=== PATIENT | male | born 1980 | race Caucasian/White ===

== ENCOUNTER 2016-12-31 08:53 | Emergency (ER) | payer BC ==
[2016-12-31] MEDS ORDERED: RX INFO: IV CONTRAST WAS GIVEN 1 EACH MISC MISCELLANE PRN (11:27)
[2016-12-31] MEDS ORDERED: ACETAMINOPHEN IV (For NPO) 1,000 MG in SALINE 100 100ML.BAG IVPB STA (11:27)
--- NOTE | 2016-12-31 11:35 | ED ---
General Adult HPI <Abebe Bose - Last Filed: 12/31/16 17:13> - General Source: patient, RN notes reviewed Mode of arrival: ambulatory Limitations: no limitations <Vipul Duke - Last Filed: 12/31/16 17:47> - General Chief complaint: ENT Stated complaint: throat pain Time Seen by Provider: 12/31/16 11:04 - History of Present Illness Initial comments: Patient is a 36-year-old male who presents emergency room today with chief complaint of a sore throat 5 days. Patient does admit to go to [employer] was started on antibiotics of Augmentin. He states he was told he had an ear infection. He states he was negative strep. Patient does admit that he has had increased pain symptoms over the last few days. States been using antibiotic with no relief. States [facility] advised him come here to the emergency room. Patient states been using Motrin for the pain but is having increased pain to the right side of the neck and feels swollen. States more difficulty swallowing but is able to swallow liquids. Patient denies any recent shortness of breath, chest pain, back pain, abdominal pain, nausea or vomiting, numbness or tingling, dysuria or hematuria, constipation or diarrhea, headaches or visual changes, or any other complaints. (Vipul Duke) - Related Data Home Medications Medication Instructions Recorded Confirmed Ibuprofen [Motrin] 800 mg PO Q8H PRN 12/31/16 12/31/16 Multivitamins, Thera [Multivitamin 1 tab PO HS 12/31/16 12/31/16 (formulary)] Allergies Allergy/AdvReac Type Severity Reaction Status Date / Time No Known Allergies Allergy Verified 12/31/16 12:18 Review of Systems ROS Other: All systems not noted in ROS Statement are negative. <Abebe Bose - Last Filed: 12/31/16 17:13> ROS Other: All systems not noted in ROS Statement are negative. <Vipul Duke - Last Filed: 12/31/16 17:47> ROS Statement: Those systems with pertinent positive or pertinent negative responses have been documented in the HPI. Past Medical History Past Medical History: No Reported History History of Any Multi-Drug Resistant Organisms: None Reported Past Surgical History: No Surgical Hx Reported Past Psychological History: No Psychological Hx Reported Smoking Status: Never smoker Past Alcohol Use History: Occasional Past Drug Use History: None Reported <Vipul Duke - Last Filed: 12/31/16 17:47> General Exam <Abebe Bose - Last Filed: 12/31/16 17:13> Limitations: no limitations <Vipul Duke - Last Filed: 12/31/16 17:47> - General Exam Comments Initial Comments: General: The patient is awake and alert, in no distress, and does not appear acutely ill. Eye: Pupils are equal, round and reactive to light, extra-ocular movements are intact. No nystagmus. There is normal conjunctiva bilaterally. No signs of icterus. Ears, nose, mouth and throat: There are moist mucous membranes and no oral lesions. Neck: The neck is supple, there is no tenderness or JVD. Cardiovascular: There is a regular rate and rhythm. No murmur, rub or gallop is appreciated. Respiratory: Lungs are clear to auscultation, respirations are non-labored, breath sounds are equal. No wheezes, stridor, rales, or rhonchi. Gastrointestinal: Soft, non-distended, non-tender abdomen without masses or organomegaly noted. There is no rebound or guarding present. No CVA tenderness. Bowel sounds are unremarkable. Musculoskeletal: Normal ROM, no tenderness. Strength 5/5. Sensation intact. Pulses equal bilaterally 2+. Neurological: A&O x 3. CN II-XII intact, There are no obvious motor or sensory deficits. Coordination appears grossly intact. Speech is normal. Skin: Skin is warm and dry and no rashes or lesions are noted. Psychiatric: Cooperative, appropriate mood & affect, normal judgment. (Vipul Duke) Course <Abebe Bose - Last Filed: 12/31/16 17:13> <Vipul Duke - Last Filed: 12/31/16 17:47> Vital Signs 12/31/16 12/31/16 12/31/16 10:34 13:29 17:03 Temperature 99.9 F H 99 F 98.8 F Pulse Rate 85 70 87 Respiratory 18 18 20 Rate Blood Pressure 131/76 121/75 115/57 O2 Sat by Pulse 99 97 97 Oximetry - Reevaluation(s) Reevaluation #1: 12/31/16 17:13 I did personally evaluate the patient and did discuss findings with him and his . Patient has had her file positive clinically he is does demonstrate evidence of a peritonsillar abscess this is confirmed by CAT scan. We did discuss the need for incision and drainage. The patient was prepped using Hurricaine spray was hydrated I did make 4 attempts with an 18-gauge needle to enter the pus pocket that. All 4 episodes were unsuccessful. The patient did move on two view 10 mL or a nervous. My attempt reported. (Abebe Bose) Reevaluation #2: 12/31/16 17:14 I did discuss the case with Dr. Gant who did agree to come in to see the patient. Evaluation is currently underway. (Abebe Bose) Medical Decision Making - Lab Data Result diagrams: 12/31/16 11:40 12/31/16 11:40 <Abebe Bose - Last Filed: 12/31/16 17:13> - Lab Data Result diagrams: 12/31/16 11:40 12/31/16 11:40 <Vipul Duke - Last Filed: 12/31/16 17:47> - Medical Decision Making Patient's CT does show tonsillar abscess on the right measuring approximately 2 cm. Patient is profile positive. Attempt was made by ER physician Dr. Bose to drain abscess. Small amount of drainage was obtained however, did call ENT for further evaluation. Patient was seen in the emergency room by ENT specialist Dr. Gant who did drain abscess. Culture is pending. Patient was given prescription by Dr. Gant for [place], prednisone, clindamycin to continue at home. Will be discharged at this time advised follow-up with ENT. ( Vipul Duke) - Lab Data Lab Results 12/31/16 12/31/16 12/31/16 Range/Units 11:40 11:40 11:40 WBC 7.9 (3.8-10.6) k/uL RBC 5.42 (4.30-5.90) m/uL Hgb 16.4 (13.0-17.5) gm/dL Hct 47.8 (39.0-53.0) % MCV 88.3 (80.0-100.0) fL MCH 30.2 (25.0-35.0) pg MCHC 34.2 (31.0-37.0) g/dL RDW 13.3 (11.5-15.5) % Plt Count 215 (150-450) k/uL Neutrophils % 74 % Lymphocytes % 15 % Monocytes % 6 % Eosinophils % 2 % Basophils % 0 % Neutrophils # 5.9 (1.3-7.7) k/uL Lymphocytes # 1.2 (1.0-4.8) k/uL Monocytes # 0.5 (0-1.0) k/uL Eosinophils # 0.1 (0-0.7) k/uL Basophils # 0.0 (0-0.2) k/uL Sodium 144 (137-145) mmol/L Potassium 4.4 (3.5-5.1) mmol/L Chloride 104 (98-107) mmol/L Carbon Dioxide 27 (22-30) mmol/L Anion Gap 13 mmol/L BUN 11 (9-20) mg/dL Creatinine 0.93 (0.66-1.25) mg/dL Est GFR (MDRD) Af Amer >60 (>60 ml/min/1.73 sqM) Est GFR (MDRD) Non-Af >60 (>60 ml/min/1.73 sqM) Glucose 89 (74-99) mg/dL Calcium 10.0 (8.4-10.2) mg/dL Total Bilirubin 1.2 (0.2-1.3) mg/dL AST 56 (17-59) U/L ALT 99 H (21-72) U/L Alkaline Phosphatase 130 H (38-126) U/L Total Protein 8.0 (6.3-8.2) g/dL Albumin 4.4 (3.5-5.0) g/dL Heterophile Antibody Positive (Negative) Group A Strep Rapid (Negative) 12/31/16 Range/Units 11:40 WBC (3.8-10.6) k/uL RBC (4.30-5.90) m/uL Hgb (13.0-17.5) gm/dL Hct (39.0-53.0) % MCV (80.0-100.0) fL MCH (25.0-35.0) pg MCHC (31.0-37.0) g/dL RDW (11.5-15.5) % Plt Count (150-450) k/uL Neutrophils % % Lymphocytes % % Monocytes % % Eosinophils % % Basophils % % Neutrophils # (1.3-7.7) k/uL Lymphocytes # (1.0-4.8) k/uL Monocytes # (0-1.0) k/uL Eosinophils # (0-0.7) k/uL Basophils # (0-0.2) k/uL Sodium (137-145) mmol/L Potassium (3.5-5.1) mmol/L Chloride (98-107) mmol/L Carbon Dioxide (22-30) mmol/L Anion Gap mmol/L BUN (9-20) mg/dL Creatinine (0.66-1.25) mg/dL Est GFR (MDRD) Af Amer (>60 ml/min/1.73 sqM) Est GFR (MDRD) Non-Af (>60 ml/min/1.73 sqM) Glucose (74-99) mg/dL Calcium (8.4-10.2) mg/dL Total Bilirubin (0.2-1.3) mg/dL AST (17-59) U/L ALT (21-72) U/L Alkaline Phosphatase (38-126) U/L Total Protein (6.3-8.2) g/dL Albumin (3.5-5.0) g/dL Heterophile Antibody (Negative) Group A Strep Rapid Negative (Negative) Disposition <Abebe Bose - Last Filed: 12/31/16 17:13> Time of Disposition: 17:47 <Vipul Duke - Last Filed: 12/31/16 17:47> Clinical Impression: Tonsillar abscess Disposition: HOME SELF-CARE Condition: Good Instructions: Peritonsillar Abscess (ED) Additional Instructions: Please use medications as prescribed and follow-up with ENT as discussed here in emergency room. Please return to emergency room if any symptoms increase or worsen or for any other concerns. Referrals: Rajinder Dee III, MD [Primary Care Provider] - 1-2 days Filemon Garza DO [Doctor of Osteopathic Medicine] - 1-2 days
[2016-12-31 11:54] LABS: Basophils % (A) 0 %; CHCM 34.2; Eosinophils # (A) 0.1 k/uL (0-0.7); Eosinophils % (A) 2 %; HCT 47.8 % (39.0-53.0); HDW 2.69; HGB 16.4 gm/dL (13.0-17.5); Luc # (Auto) 0.18; Luc % (Auto) 2; Lymphocytes # (A) 1.2 k/uL (1.0-4.8); Lymphocytes % (A) 15 %; MCH 30.2 pg (25.0-35.0); MCHC 34.2 g/dL (31.0-37.0); MCV 88.3 fL (80.0-100.0); Mean Platelet Volume 6.5; Monocytes # (A) 0.5 k/uL (0-1.0); Monocytes % (A) 6 %; Neutrophils # (A) 5.9 k/uL (1.3-7.7); Neutrophils % (A) 74 %; RBC 5.42 m/uL (4.30-5.90); RDW 13.3 % (11.5-15.5); WBC 7.9 k/uL (3.8-10.6); WBC (Perox) 7.64
[2016-12-31 12:21] LABS: ALT 99 U/L (21-72); AST 56 U/L (17-59); Alkaline Phosphatase 130 U/L (38-126); Anion Gap 13 mmol/L; Blood Urea Nitrogen 11 mg/dL (9-20); Carbon Dioxide 27 mmol/L (22-30); Chloride 104 mmol/L (98-107); Glucose 89 mg/dL (74-99); Non-African American GFR(MDRD) >60 (>60 ml/min/1.73 sqM); Potassium 4.4 mmol/L (3.5-5.1); Sodium 144 mmol/L (137-145); Total Bilirubin 1.2 mg/dL (0.2-1.3)
--- NOTE | 2016-12-31 13:19 | CT ---
EXAMINATION TYPE: CT soft tissue neck w con DATE OF EXAM: 12/31/2016 1:01 PM COMPARISON: NONE HISTORY: Sore throat and swollen gland CT DLP: 505.10 mGycm CONTRAST: Patient injected with 100 ml mL of Omnipaque 300. TECHNIQUE: Axial images at 3 mm thick sections. Reconstructed images in the coronal plane and sagitt al plane are reviewed. FINDINGS: Limited CT sections are obtained the lung apices. The lung apices appear clear. CT neck: The right fossa of Rosenmuller is effaced. Torus tubarius has some swelling on the right. Le ft torus tubarius and fossa of Rosenmuller are normal. Retail Selling Floor Leader spaces are normal. There is a rete ntion cyst within the left maxillary sinus. Left septal deviation is present. Mastoid air cells and r emaining paranasal sinuses are clear. There is a low-density area within the right tonsillar pillar with some mild peripheral enhancement. This measures approximately 2.2 cm transverse by 2.1 cm AP compatible with a tonsillar abscess. Parotid glands appear normal and symmetrical. Submandibular glands, are normal. Parapharyngeal spac es are normal. No suspicious adenopathy is evident. At the level at the right neck marked by the BB no suspicious underlying mass is evident. No suspicio us adenopathy is evident. There is a tiny substernal cleidomastoid muscle lymph node present imaging 0.6 cm. The hypopharynx appears within normal limits. Vocal cord level appear symmetrical. Thyroid as visualized is normal. Osseous structures are normal. IMPRESSIONS: 1. Right tonsillar abscess. Report was called to the emergency room by Dr. Ng by telephone at th e time of interpretation. 2. No abnormal mass at the level marked by the BB in the right neck.
[2016-12-31] MEDS ORDERED: HYDROmorphone 1 MG/ML 1 ML SYRINGE IVP STA ×2 (13:28→16:56)
[2016-12-31] MEDS ORDERED: ONDANSETRON 4 MG/2 ML VIAL IVP STA (13:28)
[2016-12-31] MEDS ORDERED: SODIUM CHLORIDE 0.9% 1,000 ML IV STA ×2 (13:33→16:37)
[2016-12-31] MEDS ORDERED: BENZOCAINE SPRAY 100 APPLIC/CAN ONE (13:41)
[2016-12-31] MEDS ORDERED: BENZOCAINE SPRAY 100 APPLIC/CAN MUCOUS MEM STA (15:11)
[2016-12-31] MEDS ORDERED: LORazepam 2 MG/ML SYRINGE IV STA (16:07)
[2016-12-31] MEDS ORDERED: methylPREDNISolone SOD SUCCI 125 MG/2 ML VIAL IV STA (16:37)
[2016-12-31] MEDS ORDERED: CLINDAMYCIN 600 MG in DEXTROSE 5% IN WATER 50 ML IVPB STA ×2 (16:40)
[2016-12-31 17:07] VITALS: RESP 20
--- NOTE | 2016-12-31 17:45 | P.GSCN ---
History of Present Illness Consult date: 12/31/16 Reason for Consult: Throat pain for 4-5 days Requesting physician: Abebe Bose History of present illness: This is a 36-year-old white male who started having a sore throat about 4-5 days ago. He developed trismus about 3 days ago. He was seen in the urgent care was given amoxicillin but if problems persisted and was sent here to the emergency room for evaluation and treatment. He complains of severe right- sided throat pain and trismus. He was monitored positive and he is being worked up for mononucleosis. This patient is in severe pain and describes it as a pressure and all pain extending to the right ear. He has a hard time opening his mouth. He describes this as severe. CAT scan evaluation previously done shows a right peritonsillar abscess. Measures over 2 cm. I discussed this with the patient and he was in agreement that this needs to be drained. Review of Systems - Constitutional Reports lethargy, Reports malaise - EENT Eyes: denies as per HPI Ears, nose, mouth and throat: Reports ant. neck pain, Reports odynophagia, Reports swelling in mouth, Reports swelling in throat, Reports sore throat - Cardiovascular Denies chest pain, Denies irregular heart beat - Respiratory Reports congestion, Denies hemoptysis - Gastrointestinal Denies abdominal pain, Denies change in bowel habits - Genitourinary Denies discharge - Musculoskeletal Denies atrophy ( ) - Integumentary Denies brittle nails - Neurological Denies balance difficulties, Denies change in speech, Denies hearing difficulties - Psychiatric Reports anxiety, Denies depression - Endocrine Denies deepening of the voice, Denies excessive sweating - Hematologic/Lymphatic Reports lymphadenopathy, Denies easy bleeding - Allergic/Immunologic Denies allergic rhinitis, Denies anaphylaxis Past Medical History Past Medical History: No Reported History History of Any Multi-Drug Resistant Organisms: None Reported Past Surgical History: No Surgical Hx Reported Past Psychological History: No Psychological Hx Reported Smoking Status: Never smoker Past Alcohol Use History: Occasional Past Drug Use History: None Reported Medications and Allergies Home Medications Medication Instructions Recorded Confirmed Type Ibuprofen [Motrin] 800 mg PO Q8H PRN 12/31/16 12/31/16 History Multivitamins, Thera [Multivitamin 1 tab PO HS 12/31/16 12/31/16 History (formulary)] Allergies Allergy/AdvReac Type Severity Reaction Status Date / Time No Known Allergies Allergy Verified 12/31/16 12:18 Surgical - Exam Osteopathic Statement: *. No significant issues noted on an osteopathic structural exam other than those noted in the History and Physical/Consult. Vital Signs Temp Pulse Resp BP Pulse Ox 99.9 F H 85 18 131/76 99 12/31/16 10:34 12/31/16 10:34 12/31/16 10:34 12/31/16 10:34 12/31/16 10:34 - General well developed, well nourished, moderate distress - Eyes PERRL, normal ocular movement - ENT Head is normocephalic, the face is symmetric. There is no abnormal movements. There is no tenderness to the sinuses are mastoids. There is no nodules or eruptions parasites on scalp. Nose is patent without polyps or masses. Ears auricles are well-formed canals are clear the tympanic members are without bulging or retraction. Mouth and throat patient has a very large amount of swelling of the right tonsil with what appears to be a peritonsillar abscess on the right this will be drained. There is uvular deviation to the left. Neck shows cervical lymphadenopathy on the right side quite tender. Patient's very anxious. normal pinna, normal nares, no decreased hearing, no deviated nasal septum, no poor prison - Respiratory normal expansion - Cardiovascular Rhythm: regular - Abdomen Abdomen: non tender - Musculoskeletal normal gait, normal posture - Psychiatric oriented to time, oriented to person, oriented to place, speech is normal Results - Labs 12/31/16 11:40 12/31/16 11:40 Abnormal Lab Results - Last 24 Hours (Table) 12/31/16 Range/Units 11:40 ALT 99 H (21-72) U/L Alkaline Phosphatase 130 H (38-126) U/L Microbiology - Last 24 Hours (Table) 12/31/16 11:40 Group A Strep Throat Culture - Preliminary Throat Diabetes panel 12/31/16 Range/Units 11:40 Sodium 144 (137-145) mmol/L Potassium 4.4 (3.5-5.1) mmol/L Chloride 104 (98-107) mmol/L Carbon Dioxide 27 (22-30) mmol/L BUN 11 (9-20) mg/dL Creatinine 0.93 (0.66-1.25) mg/dL Glucose 89 (74-99) mg/dL Calcium 10.0 (8.4-10.2) mg/dL AST 56 (17-59) U/L ALT 99 H (21-72) U/L Alkaline Phosphatase 130 H (38-126) U/L Total Protein 8.0 (6.3-8.2) g/dL Albumin 4.4 (3.5-5.0) g/dL Calcium panel 12/31/16 Range/Units 11:40 Calcium 10.0 (8.4-10.2) mg/dL Albumin 4.4 (3.5-5.0) g/dL Pituitary panel 12/31/16 Range/Units 11:40 Sodium 144 (137-145) mmol/L Potassium 4.4 (3.5-5.1) mmol/L Chloride 104 (98-107) mmol/L Carbon Dioxide 27 (22-30) mmol/L BUN 11 (9-20) mg/dL Creatinine 0.93 (0.66-1.25) mg/dL Glucose 89 (74-99) mg/dL Calcium 10.0 (8.4-10.2) mg/dL Adrenal panel 12/31/16 Range/Units 11:40 Sodium 144 (137-145) mmol/L Potassium 4.4 (3.5-5.1) mmol/L Chloride 104 (98-107) mmol/L Carbon Dioxide 27 (22-30) mmol/L BUN 11 (9-20) mg/dL Creatinine 0.93 (0.66-1.25) mg/dL Glucose 89 (74-99) mg/dL Calcium 10.0 (8.4-10.2) mg/dL Total Bilirubin 1.2 (0.2-1.3) mg/dL AST 56 (17-59) U/L ALT 99 H (21-72) U/L Alkaline Phosphatase 130 H (38-126) U/L Total Protein 8.0 (6.3-8.2) g/dL Albumin 4.4 (3.5-5.0) g/dL Assessment and Plan (1) Peritonsillar abscess Status: Acute (2) Peritonsillar cellulitis Status: Acute (3) Cervical lymphadenopathy Status: Acute (4) Trismus Status: Acute (5) Mononucleosis Status: Acute Plan: This patient underwent an incision and drainage of a very large right peritonsillar abscess. We removed a large amount of purulence which was sent for culture. He was Monospot positive and is being worked up for mononucleosis. Liver enzymes are being drawn per the physician pizza hut assistant. The patient guarded a large amount of relief from his pain once the abscess was removed. Patient is to follow up with me in the office as needed and given him my card. He is to also to follow up with his primary care physician Dr. Dee. Patient is to contact me if any problems should arise in the interim. Time with Patient: Greater than 30
--- NOTE | 2016-12-31 17:48 | P.PCN ---
Date of Procedure: 12/31/16 Preoperative Diagnosis: Right peritonsillar abscess Postoperative Diagnosis: Same Procedure(s) Performed: Incision and drainage of right peritonsillar abscess Anesthesia: local Surgeon: Filemon Garza Estimated Blood Loss (ml): 2 Pathology: none sent Condition: stable Disposition: no change Indications for Procedure: Patient developed a right peritonsillar abscess with associated trismus severe pain dysphasia etc. We recommended incision and drainage of this very large abscess. He was in agreement. All risks, benefits, and alternative therapies were discussed in detail. Consent was obtained and all questions were answered. Operative Findings: Patient had over 3 and half cc of foul-smelling purulent exudate from the abscess. Description of Procedure: This patient was placed in a sitting position. Hurricaine spray was sprayed into the throat to anesthetize the mucosa. I then injected 2 mL of lidocaine 1 % with epinephrine 1 100,000 above the right tonsil. I then inserted a needle utilizing a 25-gauge needle on a 10 mL syringe and needle aspirated 3-1/2 mL of purulence. I then took a 15 blade and made a stab incision into this pocket and widened the pocket with use of a hemostat. The patient tolerated this well and drained into a pain and were more purulence was expressed. We made a very wide opening so this incision does not close. We will discharge this patient on clindamycin, prednisone, [place] and the patient is to follow up with me as needed. He is to follow up with his family physician regarding his positive mononucleosis test.
[2016-12-31 18:16] VITALS: BP 121/66; PULSE 78; TEMP 98.5
== END 2016-12-31 18:16 | disposition home or self-care (01) ==
LOC: EC 08:53
DX: J36 Peritonsillar abscess (principal); Z79.899 Other long term (current) drug therapy; Z53.20 Procedure and treatment not carried out because of patient's decision for unspecified reasons
CPT/HCPCS: 96375 ×4; 96361 ×3; 96365 ×2; 96367 ×2; 99284 ×2; 42700 ×2; 36415; 80053; 85025; 86308; 87040; 87070; 87205; 87075; 87081; 87430; 87077; 87186; 70491; J2930; J2405; J1170; Q9967; J0131

== ENCOUNTER 2021-06-09 07:45 | Day surgery (SDC) | payer BC ==
[2021-06-07 13:48] VITALS: BMI 25.5
[~2021-06-09 07:45] MED LIST: Pre Op ABX Message 1 EACH MISC MISCELLANE ONE
[2021-06-09] MEDS ORDERED: ONDANSETRON 4 MG/2 ML VIAL IVP ONE (08:03)
[2021-06-09] MEDS ORDERED: MIDAZOLAM 2 MG/2 ML VIAL IV PRN (08:03)
[2021-06-09] MEDS ORDERED: HYDROmorphone 0.5 MG/0.5 ML SYRINGE IVP PRN (08:03)
[2021-06-09] MEDS ORDERED: LIDOCAINE 1% (10MG/ML) FOR IV START INTRADERMA PRN (08:03)
[2021-06-09] MEDS ORDERED: LACTATED RINGERS 1,000 ML IV SCH (08:03)
[2021-06-09] MEDS ORDERED: DEXAMETHASONE SOD PHOSPHATE 4 MG/ML 1 ML VIAL IV ONE (08:03)
[2021-06-09] MEDS ORDERED: FAMOTIDINE 20 MG/2 ML VIAL IVP ONE (08:34)
[2021-06-09] MEDS ORDERED: MIDAZOLAM 2 MG/2 ML VIAL IVP ONE (08:45)
[2021-06-09] MEDS ORDERED: LIDOCAINE 1% INJ 10MG/ML (20 ML MDV) ONE (09:02)
[2021-06-09] MEDS ORDERED: PROPOFOL 10 MG/ML 20 ML VIAL IV ONE (09:02)
[2021-06-09] MEDS ORDERED: SUCCINYLCHOLINE CHLORIDE 100 MG/5 ML SYR IV ONE (09:02)
[2021-06-09] MEDS ORDERED: fentaNYL (PF) 50 MCG/ML 2 ML AMP ONE (09:02)
[2021-06-09] MEDS ORDERED: DEXAMETHASONE SOD PHOSPHATE 10 MG/ML 1 ML VIAL ONE (09:02)
[2021-06-09] MEDS ORDERED: MIDAZOLAM 2 MG/2 ML VIAL ONE (09:02)
--- NOTE | 2021-06-09 09:46 | P.OP ---
Date of Procedure: 06/09/21 Preoperative Diagnosis: Right vocal cord lesion Postoperative Diagnosis: Same Procedure(s) Performed: Microlaryngoscopy with excision right vocal cord lesion Anesthesia: SATNAMA Surgeon: Scott Siddiqi Estimated Blood Loss (ml): 2 Pathology: other (Right vocal cord lesion) Condition: stable Disposition: PACU Indications for Procedure: Is a 41-year-old white male whose had chronic hoarseness. He was noted to have a right vocal were lesion on video stroboscopy Operative Findings: Exophytic pink lesion involving the right true vocal cord which is in the mid vocal cord. This started approximately 3 mm back from the anterior commissure and extended back posteriorly to within 4 mm of the arytenoid cartilage this was pink and irregular protruding approximate 3 mm. The surface was more friable but the deeper tissue was firmer was no subglottic or supraglottic involvement Description of Procedure: The patient was brought in the operative suite and placed in a supine position. Patient underwent induction of general anesthesia with oral endotracheal intubation without difficulty. The patient was prepped and draped in usual aseptic fashion. Tooth guard was placed and direct laryngoscopy was performed with systematic evaluation of the base of tongue vallecula both piriform sinuses and post cricoid area. With the vocal cords and good visualization the laryngoscope was placed in suspension and the Zeiss microscope was brought into position for further evaluation of the vocal cords. The lesion was noted as noted above. Multiple biopsies were taken with right biting microcup forceps. The remainder of the lesion was debrided with the bakery chef blade to the level of the lamina propria which was left intact. Hemostasis was gained on previously and was noted to be good. Patient was suctioned in the proximal trachea and larynx and good hemostasis remained. The laryngoscope and tooth guard were removed. The patient was allowed to emerge from general anesthesia having tolerated procedure well was extubated in the operating suite and transferred to postop recovery area in satisfactory condition.
[2021-06-09] MEDS ORDERED: LACTATED RINGERS 1,000 ML IV ONE ×2 (10:20)
[2021-06-09 10:23] VITALS: TEMP 97.9
[2021-06-09 11:15] VITALS: PULSE 66
[2021-06-09 11:31] VITALS: BP 137/86; RESP 20
== END 2021-06-09 11:40 | disposition home or self-care (01) ==
LOC: OR 07:45
PROVIDERS: ATTEND Otolaryngology
DX: C32.0 Malignant neoplasm of glottis (principal); K21.9 Gastro-esophageal reflux disease without esophagitis; R01.1 Cardiac murmur, unspecified; Z87.891 Personal history of nicotine dependence; Z79.52 Long term (current) use of systemic steroids; Z79.899 Other long term (current) drug therapy; Z88.0 Allergy status to penicillin
CPT/HCPCS: 88305; 88342; 31541; J2250; J1100 ×2; J2405; J2001; J3010; J0330; J2704

== ENCOUNTER → 2021-06-19 | Outpatient (CLI) | payer BC ==
--- NOTE | 2021-06-20 12:00 | CT ---
EXAMINATION TYPE: CT neck chest w con DATE OF EXAM: 06/19/2021 COMPARISON: 12/31/2016 HISTORY: Right vocal cord squamous cell cancer. CT DLP: 971.7 mGycm CONTRAST: CT scan of the neck is performed with IV Contrast, patient injected with 100 mL of Isovue M300. Contrast enhanced CT of the neck was performed from the skull base through the lung apices. AIRWAY: The supraglottic, glottic, and subglottic portions of the airway appear patent and free of mass. SALIVARY GLANDS: The submandibular and parotid glands are free of mass or inflammatory process. THYROID GLAND: No nodules or masses seen. LYMPH NODES: No adenopathy seen greater than 1cm. LUNG APICES: No nodule or mass is seen. OTHER: Vascular structures are patent. No significant degenerative change of the cervical spine. N o abscess seen. IMPRESSION: No discrete abnormalities seen at this time. Correlate clinically with regards to the provided histor y.
== END | disposition home or self-care (01) ==
LOC: RADCTMAIN 14:02
PROVIDERS: ATTEND Otolaryngology
DX: C32.0 Malignant neoplasm of glottis (principal)
CPT/HCPCS: 70491; 71260; Q9967

== ENCOUNTER 2023-10-16 17:41 | Emergency (ER) | payer OTHER, BC ==
--- NOTE | 2023-10-16 17:54 | ED ---
General Adult HPI - General Chief complaint: Skin/Abscess/Foreign Body Stated complaint: Hand Laceration Time Seen by Provider: 10/16/23 17:50 Source: patient, RN notes reviewed Mode of arrival: ambulatory Limitations: no limitations - History of Present Illness Initial comments: 43-year-old male presents to the emergency department for evaluation of left hand abrasion following a fall. He states that he was at work when he tripped on a step and fell forward. He states that he hit the top of his hand on the concrete. He denies any pain to his fingers but notes 2 abrasions to his hand. He admits to normal range of motion to the fingers, no tenderness. He also notes that he hit his knee when he fell. It is nontender, he is able to ambulate well. He is up-to-date on his tetanus vaccination. - Related Data Home Medications Medication Instructions Recorded Confirmed Multivitamins, Thera [Multivitamin 1 tab PO HS 12/31/16 06/09/21 (formulary)] Allergies Allergy/AdvReac Type Severity Reaction Status Date / Time Penicillins Allergy Rash/Hives Verified 06/09/21 08:12 Review of Systems ROS Statement: Those systems with pertinent positive or pertinent negative responses have been documented in the HPI. ROS Other: All systems not noted in ROS Statement are negative. Past Medical History Past Medical History: No Reported History Additional Past Medical History / Comment(s): "Heart murmur since I was kid, no issues". History of Any Multi-Drug Resistant Organisms: None Reported Past Surgical History: No Surgical Hx Reported Additional Past Surgical History / Comment(s): [place] teeth extracted. Past Anesthesia/Blood Transfusion Reactions: No Reported Reaction Additional Past Anesthesia/Blood Transfusion Reaction / Comment(s): Has never had general anesthesia. Past Psychological History: No Psychological Hx Reported Smoking Status: Former smoker Past Alcohol Use History: Occasional Past Drug Use History: None Reported - Past Family History Mother Family Medical History: No Reported History General Exam Limitations: no limitations General appearance: alert, in no apparent distress Head exam: Present: atraumatic, normocephalic, normal inspection Eye exam: Present: normal appearance, PERRL, EOMI. Absent: scleral icterus, conjunctival injection, periorbital swelling ENT exam: Present: normal exam, mucous membranes moist Respiratory exam: Present: normal lung sounds bilaterally. Absent: respiratory distress, wheezes, rales, rhonchi, stridor Cardiovascular Exam: Present: regular rate, normal rhythm, normal heart sounds. Absent: systolic murmur, diastolic murmur, rubs, gallop, clicks Extremities exam: Present: full ROM, normal capillary refill, other (Radial pulses 2+, small abrasion present to dorsal aspect of left hand). Absent: tenderness Back exam: Present: normal inspection Neurological exam: Present: alert, oriented X3 Psychiatric exam: Present: normal affect, normal mood Skin exam: Present: warm, dry, intact, normal color. Absent: rash Course Vital Signs 10/16/23 17:45 Temperature 97.6 F Pulse Rate 59 L Respiratory 18 Rate Blood Pressure 135/89 O2 Sat by Pulse 97 Oximetry Medical Decision Making - Medical Decision Making Was pt. sent in by a medical professional or institution ([facility] [place], DENTURE CONTOUR WIRE SPECIALIST, urgent care, hospital, or fdc...) When possible be specific @ -No Did you speak to anyone other than the patient for history (EMS, parent, family, police, friend...)? What history was obtained from this source @ -No Did you review nursing and triage notes (agree or disagree)? Why? @ -I reviewed and agree with nursing and triage notes Were old charts reviewed (outside hosp., previous admission, EMS record, old EKG, old radiological studies, urgent care reports/EKG's, fdc records)? Report findings @ -No old charts were reviewed Differential Diagnosis (chest pain, altered mental status, abdominal pain women, abdominal pain men, vaginal bleeding, weakness, fever, dyspnea, syncope, headache, dizziness, GI bleed, back pain, seizure, CVA, palpatations, mental health, musculoskeletal)? @ -Fall, fracture, abrasion, laceration, this list is not inclusive EKG interpreted by me (3pts min.). @ -None X-rays interpreted by me (1pt min.). @ -None done CT interpreted by me (1pt min.). @ -None done U/S interpreted by me (1pt. min.). @ -None done What testing was considered but not performed or refused? (CT, X-rays, U/S, labs)? Why? @ -X-rays considered, patient is nontender on examination, full range of motion present What meds were considered but not given or refused? Why? @ -None Did you discuss the management of the patient with other professionals (professionals i.e. , PA, DENTURE CONTOUR WIRE SPECIALIST, lab, RT, psych nurse, social media analyst, supervisor network control operators, teacher, tactical response group officer, case mgr)? Give summary @ -No Was smoking cessation discussed for >3mins.? @ -No Was critical care preformed (if so, how long)? @ -No Were there social determinants of health that impacted care today? How? (Homelessness, low income, unemployed, alcoholism, drug addiction, transportat ion, low edu. Level, literacy, decrease access to med. care, residential, rehab)? @ -No Was there de-escalation of care discussed even if they declined (Discuss DNR or withdrawal of care, Hospice)? DNR status @ -No What co-morbidities impacted this encounter? (DM, HTN, Smoking, COPD, CAD, Cancer, CVA, ARF, Chemo, Hep., AIDS, mental health diagnosis, sleep apnea, morbid obesity)? @ -None Was patient admitted / discharged? Hospital course, mention meds given and route, prescriptions, significant lab abnormalities, going to OR and other pertinent info. @ -Discharge. Patient presented to the emergency department for evaluation of left hand abrasion. He fell at work and was told that he needed to be seen. He is up-to-date on his tetanus vaccination. Wounds cleaned and bacitracin was applied. Advised to keep wounds clean and dry. Patient understanding agreeable with plan. Patient stable at time of discharge. Case discussed with Dr. Yadav Undiagnosed new problem with uncertain prognosis? @ -No Drug Therapy requiring intensive monitoring for toxicity (Heparin, Nitro, Insulin, Cardizem)? @ -No Were any procedures done? @ -No Diagnosis/symptom? @ -Hand abrasion Acute, or Chronic, or Acute on Chronic? @ -Acute Uncomplicated (without systemic symptoms) or Complicated (systemic symptoms)? @ -Uncomplicated Side effects of treatment? @ -No Exacerbation, Progression, or Severe Exacerbation? @ -No Poses a threat to life or bodily function? How? (Chest pain, [place], [place], pneumonia, PE, COPD, DKA, ARF, appy, cholecystitis, CVA, Diverticulitis, Homicidal, Suicidal, threat to staff... and all critical care pts) @ -No Disposition Clinical Impression: Abrasion of left hand Disposition: HOME SELF-CARE Condition: Stable Instructions (If sedation given, give patient instructions): Acute Wound Care (ED) Additional Instructions: Please follow-up with your primary care provider. Keep wound clean and dry. Return to the emergency department for new or worsening symptoms. Is patient prescribed a controlled substance at d/c from ED?: No Referrals: Sacha Flores MD [Primary Care Provider] - 1-2 days
[2023-10-16] MEDS: BACITRACIN OINT 1 EACH PACKET TOPICAL ONE (18:04)
[2023-10-16 18:36] VITALS: BP 135/89; PULSE 59; RESP 18; TEMP 97.6
== END 2023-10-16 18:23 | disposition home or self-care (01) ==
LOC: EC 17:41
DX: S60.512A Abrasion of left hand, initial encounter (principal); Z87.891 Personal history of nicotine dependence; Z88.0 Allergy status to penicillin; W10.9XXA Fall (on) (from) unspecified stairs and steps, initial encounter; Y99.0 Civilian activity done for income or pay
CPT/HCPCS: 99282